=== PATIENT | female | born 1955 | race Caucasian/White ===

== ENCOUNTER 2020-09-10 12:43 | Inpatient (IN) | payer OTHER ==
[2020-09-10] MEDS ORDERED: DEXAMETHASONE SOD PHOSPHATE 4 MG/1 ML VIAL IVPUSH ONE (14:12)
[2020-09-10 14:28] VITALS: BMI 27.7
[2020-09-10 14:41] LABS: VENOUS BASE EXCESS 3.6 mmol/L (-2-2); VENOUS O2 SATURATION 79.8 % (70-80); VENOUS PCO2 46.2 mmHg (38-52); VENOUS PH 7.416 (7.310-7.410)
[2020-09-10 14:42] LABS: BASO % 0.3 % (0-2.0); EOS % 0.4 % (0-4.5); HEMATOCRIT 37.4 % (32.4-45.2); HEMOGLOBIN 12.9 GM/dL (10.7-15.3); LYMPH % 19.8 % (8-40); MCH 27.6 pg (25.7-33.7); MCHC 34.4 g/dl (32.0-36.0); MEAN CELL VOLUME 80.4 fl (80-96); MEAN PLT VOLUME 8.1 fl (7.5-11.1); MONO % 14.8 % (3.8-10.2); NEUT % 64.7 % (42.8-82.8); PLATELET COUNT 297 K/MM3 (134-434); RBC 4.65 M/mm3 (3.60-5.2); RDW 13.7 % (11.6-15.6); WHITE BLOOD COUNT 6.7 K/mm3 (4.0-10.0)
[2020-09-10] MEDS ORDERED: DEXAMETHASONE SOD PHOSPHATE 10 MG/1 ML VIAL ONE (14:42)
[2020-09-10 15:04] LABS: INR 1.14 (0.83-1.09); PROTHROMBIN TIME (PATIENT) 13.7 SEC (9.7-13.0)
[2020-09-10 15:07] LABS: ACTIVATED PTT 27.9 SECONDS (25.2-36.5); CHLORIDE 102 mmol/L (98-107); POTASSIUM 4.3 mmol/L (3.5-5.1); SODIUM 135 mmol/L (136-145)
[2020-09-10 15:09] LABS: CALCIUM 8.2 mg/dL (8.5-10.1)
[2020-09-10 15:10] LABS: ALBUMIN 2.8 g/dl (3.4-5.0); ANION GAP 4 MMOL/L (8-16); CO2 29 mmol/L (21-32); GLUCOSE,RANDOM 187 mg/dL (74-106); LIPASE 150 U/L (73-393)
[2020-09-10 15:13] LABS: CREATININE 0.7 mg/dL (0.55-1.3); SGOT/AST 57 U/L (15-37); SGPT/ALT 52 U/L (13-61)
[2020-09-10 15:14] LABS: BILIRUBIN,TOTAL 0.5 mg/dL (0.2-1)
[2020-09-10 15:15] LABS: TOT PROT 6.7 g/dl (6.4-8.2)
[2020-09-10 15:16] LABS: ALK PHOS 95 U/L (45-117)
[2020-09-10 15:17] LABS: LDH 349 U/L (84-246)
[2020-09-10 15:31] LABS: ERYTHROCYTE SEDIMENTATION RATE 81 mm/hr (0-30)
[2020-09-10 20:22] LABS: EPI CELLS >36 /uL (0-25.1); HYALINE CASTS 2 /uL (0-3.1); PH,URINE 5.5 (5.0-8.0); URINE APPEARANCE CLOUDY; URINE BACTERIA 1631 /uL (0-1359); URINE BILIRUBIN NEGATIVE (NEGATIVE); URINE COLOR YELLOW; URINE GLUCOSE (UA) NEGATIVE (NEGATIVE); URINE KETONE TRACE (NEGATIVE); URINE LEUK ESTERASE 2+ (NEGATIVE); URINE NITRITE NEGATIVE (NEGATIVE); URINE PROTEIN TRACE (NEGATIVE); URINE UROBILINOGEN 0.2 mg/dL (0.2-1.0); URINE WBC 1252 /uL (0-25.8)
[2020-09-10 22:06] LABS: URINE RBC 26.9 /uL (0-23.9)
[2020-09-10] MEDS ORDERED: ALBUTEROL SO4 HFA INHALER IH PRN (23:09)
[2020-09-11] MEDS: ASCORBIC ACID 500 MG TABLET (FP) PO SCH ×2 (05:19→11:19)
[2020-09-11] MEDS ORDERED: ASCORBIC ACID 500 MG TABLET (FP) ONE ×2 (06:06→10:43)
[2020-09-11] MEDS ORDERED: ZOLPIDEM TARTRATE 5 MG TABLET PO ONE (06:14)
[2020-09-11 06:16] LABS: BASO % 0.1 % (0-2.0); HEMATOCRIT 36.4 % (32.4-45.2); HEMOGLOBIN 12.4 GM/dL (10.7-15.3); LYMPH % 15.7 % (8-40); MCH 27.5 pg (25.7-33.7); MCHC 34.2 g/dl (32.0-36.0); MEAN CELL VOLUME 80.3 fl (80-96); MONO % 9.5 % (3.8-10.2); NEUT % 74.7 % (42.8-82.8); PLATELET COUNT 337 K/MM3 (134-434); RBC 4.53 M/mm3 (3.60-5.2); RDW 13.7 % (11.6-15.6); WHITE BLOOD COUNT 4.3 K/mm3 (4.0-10.0)
[2020-09-11 06:40] LABS: ALBUMIN 2.7 g/dl (3.4-5.0)
[2020-09-11 06:42] LABS: CALCIUM 8.4 mg/dL (8.5-10.1)
[2020-09-11 06:43] LABS: CREATININE 0.7 mg/dL (0.55-1.3)
[2020-09-11 06:44] LABS: BILIRUBIN,TOTAL 0.5 mg/dL (0.2-1); TOT PROT 6.9 g/dl (6.4-8.2)
[2020-09-11] MEDS ORDERED: INSULIN SLIDING SCALE (NOVOLOG) 1 VIAL SQ SCH (07:00)
[2020-09-11] MEDS ORDERED: ZOLPIDEM TARTRATE 5 MG TABLET ONE (08:14)
[2020-09-11] MEDS ORDERED: ASPIRIN COATED 81 MG TABLET.EC PO SCH (10:00)
[2020-09-11] MEDS ORDERED: LISINOPRIL 10 MG TABLET PO SCH (10:00)
[2020-09-11] MEDS ORDERED: ZINC SULFATE 220 MG CAPSULE (FP) PO SCH (10:00)
[2020-09-11] MEDS ORDERED: FAMOTIDINE 20 MG TABLET PO SCH (10:00)
[2020-09-11] MEDS ORDERED: DEXAMETHASONE 4 MG TABLET (FP) PO SCH (10:00)
[2020-09-11] MEDS ORDERED: CHOLECALCIFEROL (VIT D3) 1,000 UNIT (25 MCG) TABLET PO SCH (10:00)
[2020-09-11] MEDS ORDERED: ENOXAPARIN NA (PORCINE) 40 MG/0.4 ML DISP.SYRIN SQ SCH (10:00)
[2020-09-11] MEDS ORDERED: ZINC SULFATE 220 MG CAPSULE (FP) ONE (10:43)
[2020-09-11] MEDS ORDERED: DEXAMETHASONE SOD PHOSPHATE 10 MG/1 ML VIAL ONE (10:43)
[2020-09-11] MEDS ORDERED: LISINOPRIL 5 MG TABLET ONE (10:43)
[2020-09-11] MEDS ORDERED: ASPIRIN COATED 81 MG TABLET.EC ONE (10:43)
[2020-09-11] MEDS ORDERED: FAMOTIDINE 20 MG TABLET ONE (10:43)
[2020-09-11] MEDS ORDERED: CHOLECALCIFEROL (VIT D3) 1,000 UNIT (25 MCG) TABLET ONE (10:43)
[2020-09-11] MEDS ORDERED: ENOXAPARIN NA (PORCINE) 40 MG/0.4 ML DISP.SYRIN SQ ONE (10:44)
[2020-09-11 11:20] VITALS: BP 141/89; PULSE 90; TEMP 98.4
== END 2020-09-11 11:22 | disposition home or self-care (01) | DRG 177 ==
LOC: JER 12:43 → JERBED 16:40
PROVIDERS: ADMIT Internal Medicine; ATTEND Internal Medicine
DX: U07.1 COVID-19 (principal); J12.82 Pneumonia due to coronavirus disease 2019; E78.5 Hyperlipidemia, unspecified; E11.9 Type 2 diabetes mellitus without complications; I10 Essential (primary) hypertension; G47.00 Insomnia, unspecified
CPT/HCPCS: 36415; 71045-TC-FY; 76705-TC; 80053; 80307; 81003; 82728; 82803; 82962; 83605; 83615; 83690; 84484; 85025; 85379; 85610; 85651; 85730; 86140; 86900; 87040; 87086; 87804; 93005; 93010; 99285-25; C9803; U0003